=== PATIENT | female | born 1955 | race Caucasian/White ===

== ENCOUNTER 2018-03-23 23:48 | Observation (INO) | payer MEDICARE ==
[~2018-03-23] VITALS: Ht 162.6 cm; Wt 56.8 kg
[2018-03-24] MEDS ORDERED: HYDROCODONE-APA1 TAB PO (00:01)
[2018-03-24] MEDS ORDERED: XANAX1 MG PO (00:02)
[2018-03-24] MEDS ORDERED: AMBIEN10 MG (00:02)
[2018-03-24] MEDS ORDERED: DEPAKOTE250 MG PO (00:03)
[2018-03-24] MEDS ORDERED: NEXIUM20 MG PO (00:03)
[2018-03-24] MEDS ORDERED: VENTOLIN HFA18 GM INH (00:03)
[2018-03-24] MEDS ORDERED: ZOFRAN ODT4 MG/UDTAB (00:04)
[2018-03-24] MEDS ORDERED: ZOCOR10 MG (00:04)
[2018-03-24] MEDS ORDERED: BC POWDER (00:04)
[2018-03-24] MEDS ORDERED: NITROSTAT0.4 MG SL (00:05)
[2018-03-24] MEDS ORDERED: ASA PO (00:05)
[2018-03-24 00:40] LABS: BASOPHILS 0.1 % (0-2); EOSINOPHILS 2.9 % (0-7); HEMATOCRIT 34.7 % (36.0-48.0); HEMOGLOBIN 11.1 g/dL (12-16); IMMATURE GRANULOCYTES 0.4 % (0-5); LYMPHOCYTES 17.5 % (15-50); MCH 28.6 pg (26.0-34.0); MCV 89.4 fL (80.0-100.0); MEAN PLATELET VOLUME 9.1 fL (7.4-10.4); MONOCYTES 8.2 % (2-11); NEUTROPHILS 70.9 % (40-80); PLATELET COUNT 257 10x3/uL (130-400); RBC 3.88 10x6/uL (4.00-5.40); RDW 14.2 % (11.5-14.5); WBC 7.2 10x3/uL (4.8-10.8)
[2018-03-24 02:58] VITALS: BP 105/50; BMI 21.5
[2018-03-24 04:00] VITALS: BP 111/57
[2018-03-24 08:00] VITALS: BP 74/36
[2018-03-24 11:01] VITALS: BP 114/57
[2018-03-24 13:56] VITALS: Ht 162.6 cm; Wt 56.8 kg
[2018-03-24 15:22] LABS: ALBUMIN 1.9 g/dL (3.4-5.0); ALKALINE PHOSPHATASE 129 U/L (46-116); ALT (SGPT) 6 U/L (10-68); BILIRUBIN - TOTAL 0.08 mg/dL (0.2-1.3); CALC OSMOLALITY 273 mosm/kg (275-300); CALCIUM 7.6 mg/dL (8.5-10.1); CARBON DIOXIDE 24.5 mmol/L (21.0-32.0); CHLORIDE - SERUM 105 mmol/L (98-107); CREATININE - SERUM 0.5 mg/dL (0.6-1.3); GLUCOSE 109 mg/dL (74-106); MAGNESIUM - SERUM 1.7 mg/dL (1.8-2.4); POTASSIUM - SERUM 3.8 mmol/L (3.5-5.1); PROTEIN - SERUM 5.3 g/dL (6.4-8.2); SODIUM 138 mmol/L (136-145); UREA NITROGEN 3 mg/dL (7-18); eGFR NON AFRICAN AMERICAN > 90 mL/min (90-120)
[2018-03-24 15:29] VITALS: BP 109/55
[2018-03-24 16:05] LABS: BASOPHILS 0.2 % (0-2); EOSINOPHILS 2.4 % (0-7); HEMATOCRIT 31.8 % (36.0-48.0); HEMOGLOBIN 10.2 g/dL (12-16); IMMATURE GRANULOCYTES 0.4 % (0-5); LYMPHOCYTES 13.6 % (15-50); MCH 28.3 pg (26.0-34.0); MCHC 32.1 g/dL (31.0-37.0); MCV 88.3 fL (80.0-100.0); MEAN PLATELET VOLUME 9.2 fL (7.4-10.4); NEUTROPHILS 74.4 % (40-80); PLATELET COUNT 253 10x3/uL (130-400)
[2018-03-24 16:37] LABS: APTT 36.7 SECONDS (22.8-39.4); INR 1.21 (0.85-1.17); PROTIME 14.9 SECONDS (11.6-15.0)
[2018-03-25] VITALS: BP 100/40
[2018-03-25 04:33] VITALS: BP 116/59
[2018-03-25 05:26] LABS: BASOPHILS 0.5 % (0-2); EOSINOPHILS 4.1 % (0-7); HEMATOCRIT 33.3 % (36.0-48.0); HEMOGLOBIN 10.4 g/dL (12-16); IMMATURE GRANULOCYTES 0.2 % (0-5); LYMPHOCYTES 23.9 % (15-50); MCH 28.4 pg (26.0-34.0); MCHC 31.2 g/dL (31.0-37.0); MEAN PLATELET VOLUME 9.4 fL (7.4-10.4); MONOCYTES 13.1 % (2-11); NEUTROPHILS 58.2 % (40-80); PLATELET COUNT 245 10x3/uL (130-400); RBC 3.66 10x6/uL (4.00-5.40); RDW 14.2 % (11.5-14.5); WBC 4.4 10x3/uL (4.8-10.8)
[2018-03-25 05:41] LABS: CALCIUM 7.7 mg/dL (8.5-10.1); CARBON DIOXIDE 30.3 mmol/L (21.0-32.0); POTASSIUM - SERUM 3.3 mmol/L (3.5-5.1)
[2018-03-25 05:43] LABS: CREATININE - SERUM 0.9 mg/dL (0.6-1.3)
[2018-03-25 11:36] VITALS: BP 99/40
[2018-03-25] MEDS ORDERED: BACTRIM DS TABL1 TAB PO (14:15)
[2018-03-25] MEDS ORDERED: FLAGYL500 MG PO (14:15)
[2018-03-25 16:28] VITALS: BP 125/57
== END 2018-03-25 17:46 | disposition home or self-care (01) ==
LOC: D.ER 23:48 → OBSVTIME 03-24 00:45 → D.M2 03-24 00:45
PROVIDERS: Emergency Medicine; Internal Medicine Nephrology
DX: A09 Infectious gastroenteritis and colitis, unspecified (principal); A08.4 Viral intestinal infection, unspecified; K55.9 Vascular disorder of intestine, unspecified; I10 Essential (primary) hypertension; J44.9 Chronic obstructive pulmonary disease, unspecified; Z85.3 Personal history of malignant neoplasm of breast; K21.9 Gastro-esophageal reflux disease without esophagitis; F17.213 Nicotine dependence, cigarettes, with withdrawal; E43 Unspecified severe protein-calorie malnutrition; Z68.21 Body mass index [BMI] 21.0-21.9, adult; D62 Acute posthemorrhagic anemia; K62.5 Hemorrhage of anus and rectum; K57.90 Diverticulosis of intestine, part unspecified, without perforation or abscess without bleeding; G40.909 Epilepsy, unspecified, not intractable, without status epilepticus